=== PATIENT | female | born 1965 | race Caucasian/White ===

== ENCOUNTER → 2016-08-03 | Outpatient (CLI) | payer BC ==
--- NOTE | 2016-08-04 08:21 | MAMMOGRAPHY REPORT ---
BILATERAL DIGITAL SCREENING MAMMOGRAM TOMOSYNTHESIS WITH CAD: 08/03/2016 CLINICAL HISTORY: Routine screening. Patient has no complaints. TECHNIQUE: Breast tomosynthesis in addition to standard 2D mammography was performed. Current study was also evaluated with a Computer Aided Detection (CAD) system. COMPARISON: Comparison is made to exams dated: 07/25/2015 mammogram, 07/22/2014 mammogram, 05/30/2012 mamm ogram, 05/24/2011 mammogram, 05/19/2010 mammogram, and 06/04/2013 mammogram - [facility] BREAST COMPOSITION: The tissue of both breasts is heterogeneously dense, which may obscure small mas ses. FINDINGS: A linear scar marker overlies the upper outer quadrant of the right breast. There are a fe w benign-appearing calcifications in the breasts. No new suspicious mass, architectural distortion o r cluster of microcalcifications is seen. IMPRESSION: ACR BI-RADS CATEGORY 1: NEGATIVE There is no mammographic evidence of malignancy. A 1 year screening mammogram is recommended. The pa tient will receive written notification of the results. Approximately 10% of breast cancers are not detected with mammography. A negative mammographic report should not delay biopsy if a clinically suggestive mass is present. Randi Pleitez M.D. ay/:08/03/2016 18:16:39 End Packer: Estrellita HENRIQUEZ(Will)(M), [facility] letter sent: Normal 1/2 BI-RADS Code: ACR BI-RADS Category 1: Negative
== END | disposition home or self-care (01) ==
LOC: C.MAMM 10:32
PROVIDERS: ATTEND Physician Assistant
DX: Z12.31 Encounter for screening mammogram for malignant neoplasm of breast (principal)

== ENCOUNTER 2017-07-13 11:42 | Emergency (ER) | payer BC, OTHER ==
[~2017-07-13] VITALS: Ht 172.7 cm; Wt 70.0 kg
[2017-07-13 11:44] VITALS: TEMP 36.4; Ht 172.7 cm; Wt 70.0 kg
[2017-07-13] MEDS ORDERED: AMOX500C3 PO (11:50)
[2017-07-13] MEDS ORDERED: AMPICILLIN/SULBACTAM SOD INJ 3,000 MG in SODIUM CHLORIDE 0.9% 100ML 100 ML IV STA (12:18)
[2017-07-13 12:38] LABS: BASO % 0.3 %; BASO ABS # 0.02 K/uL (0-0.2); EOS % 0.6 %; EOS ABS # 0.04 K/uL (0-0.5); HEMATOCRIT 39.5 % (37-47); HEMOGLOBIN 13.4 g/dL (12.0-16.0); IG# 0.01 K/uL (0.00-0.02); LYMPH % 17.2 %; LYMPH ABS # 1.24 K/uL (1.2-3.4); MEAN CELL VOLUME 97.3 fL (80-100); MEAN CORPUSCULAR HGB CONC 33.9 g/dl (32-36); MEAN PLATELET VOLUME 9.9 fL (7.4-10.4); MONO % 7.3 %; MONO ABS # 0.53 K/uL (0.11-0.59); NEUT % 74.5 %; NEUT ABS # 5.39 K/uL (1.4-6.5); PLATELET COUNT 208 K/uL (130-400); RED CELL DISTRIBUTION WIDTH SD 46.3 fL (36.4-46.3); WHITE BLOOD COUNT 7.23 K/uL (4.8-10.8)
[2017-07-13 13:03] LABS: CALCIUM 8.9 mg/dl (8.5-10.1); CREATININE 0.71 mg/dl (0.60-1.20); POTASSIUM 3.8 mmol/L (3.5-5.1); TOTAL PROTEIN 7.3 gm/dl (6.4-8.2)
[2017-07-13 13:45] VITALS: BP 119/87; PULSE 87; O2SAT 100
--- NOTE | 2017-07-13 13:47 | EMERGENCY ROOM VISIT NOTE ---
ED Visit Note First contact with patient: 11:50 CHIEF COMPLAINT: Infection of the left hand, dog bite HISTORY OF PRESENT ILLNESS: This left-hand dominant 52-year-old female patient presents to the emergency department, ambulatory, complaining of swelling, redness, and pain of the left hand. The patient states she was bitten by a dog yesterday. The dog was her own, and is up-to-date on its vaccinations. She states she was breaking up a fight over food bowls between 2 of her dogs, and is uncertain exactly which dog bit her. She was seen by her PCP. She was started on Augmentin, and has had 3 doses of medication since then. The area has become red, warm, and very painful. The patient denies fever, chills, nausea , or loss of appetite. Movement of the hand is mildly decreased because of the pain. The patient's tetanus shot is up to date. She states she feels that the redness is spreading and spoke with a physician today who suggested evaluation at the ED due to the worsening redness and swelling as well as some mild streaking towards the elbow. REVIEW OF SYSTEMS: A 10 system review of systems was performed with positives and pertinent negatives listed in the history of present illness. All other systems were reviewed and are negative. ALLERGIES: None MEDICATIONS: None PMH: None SOCIAL HISTORY: The patient lives locally with family. She denies drug, alcohol , tobacco use. PHYSICAL EXAM: Vital Signs: Reviewed Nurse's notes, Temperature 36.4C, vital signs stable. GENERAL: This is a 52-year-old white female, in no acute distress , is non toxic in appearance, well-developed, well-nourished. SKIN: There is a puncture wound in the webspace between the first and second digits on the left hand. The left hand is red, warm, very tender, and swollen. There is no lymphangitic streaking. There is no discharge. There is no fluctuance. There is no induration. HEART: Regular rate and rhythm without murmur, gallop, or rub. LUNGS: Clear to auscultation bilaterally without wheezes, rales, or rhonchi. NEURO: Alert and oriented to person, place, and time. Normal sensation to light and sharp touch. Capillary reflex less than 2 seconds. Peripheral pulses 2 + bilaterally. EMERGENCY DEPARTMENT COURSE: I examined the patient. Her symptoms are consistent with an acute cellulitis related to the dog bite. There is no obvious or palpable abscess noted. Labs performed and reviewed. There is no obvious leukocytosis. There is no anemia or thrombocytopenia. The patient's renal, hepatic function and electrolytes were without abnormalities. Patient was given a dose of IV Unasyn here in the emergency department. The redness and swelling was outlined with a skin marker. The patient was given an arm sling to help with elevation of the wound. I had a long discussion with the patient regarding the potential risks associated with bites and infection. The patient certainly does not appear to be experiencing any systemic infection at this time. I feel that the wound is healing as it should, and discussed with her that these often become worse before they get better. I recommended she continue taking the Augmentin as prescribed and has a recheck in 24 hours. Patient verbalized understanding. Discharge instructions reviewed, patient was discharged home in good condition. I attest that I have personally reviewed the patient's current medication list. Patient was found to have normal blood pressure on screening and does not require follow-up. Differential diagnosis includes cellulitis, abscess, DVT, superficial thrombus, septic joint, necrotizing fasciitis, burn, dermatitis, impetigo, erythema multiforme, bite, osteomyelitis, Cueto-Jacques Syndrome, gangrene, malignancy , rabies exposure, and others DIAGNOSIS: Cellulitis of the left hand, dog bite The chart was completed utilizing [employer] Speech voice recognition software. Grammatical errors, random word insertions, pronoun errors, and incomplete sentences are an occasional consequence of this system due to software limitations, ambient noise, and hardware issues. Any formal questions or concerns about the content, text, or information contained within the body of this dictation should be directly addressed to the provider for clarification. Current/Historical Medications Scheduled Amoxicillin (Amoxil), 500 MG PO BID Allergies Coded Allergies: No Known Allergies (Unverified , 08/30/12) Vital Signs Date Time Temp Pulse Resp B/P (MAP) Pulse Ox O2 Delivery O2 Flow Rate FiO2 07/13/17 11:44 36.4 93 16 118/74 92 Laboratory Results 07/13/17 12:30 Red Blood Count 4.06, Mean Corpuscular Volume 97.3, Mean Corpuscular Hemoglobin 33.0, Mean Corpuscular Hemoglobin Concent 33.9, Mean Platelet Volume 9.9, Neutrophils (%) (Auto) 74.5, Lymphocytes (%) (Auto) 17.2, Monocytes (%) (Auto) 7.3, Eosinophils (%) (Auto) 0.6, Basophils (%) (Auto) 0.3, Neutrophils # (Auto) 5.39, Lymphocytes # (Auto) 1.24, Monocytes # (Auto) 0.53, Eosinophils # (Auto) 0.04, Basophils # (Auto) 0.02 07/13/17 12:30 Test 07/13/17 12:30 White Blood Count 7.23 K/uL (4.8-10.8) Red Blood Count 4.06 M/uL (4.2-5.4) Hemoglobin 13.4 g/dL (12.0-16.0) Hematocrit 39.5 % (37-47) Mean Corpuscular Volume 97.3 fL (80-100) Mean Corpuscular Hemoglobin 33.0 pg (25-34) Mean Corpuscular Hemoglobin Concent 33.9 g/dl (32-36) Platelet Count 208 K/uL (130-400) Mean Platelet Volume 9.9 fL (7.4-10.4) Neutrophils (%) (Auto) 74.5 % Lymphocytes (%) (Auto) 17.2 % Monocytes (%) (Auto) 7.3 % Eosinophils (%) (Auto) 0.6 % Basophils (%) (Auto) 0.3 % Neutrophils # (Auto) 5.39 K/uL (1.4-6.5) Lymphocytes # (Auto) 1.24 K/uL (1.2-3.4) Monocytes # (Auto) 0.53 K/uL (0.11-0.59) Eosinophils # (Auto) 0.04 K/uL (0-0.5) Basophils # (Auto) 0.02 K/uL (0-0.2) RDW Standard Deviation 46.3 fL (36.4-46.3) RDW Coefficient of Variation 13.0 % (11.5-14.5) Immature Granulocyte % (Auto) 0.1 % Immature Granulocyte # (Auto) 0.01 K/uL (0.00-0.02) Anion Gap 4.0 mmol/L (3-11) Est Creatinine Clear Calc Drug Dose 95.6 ml/min Estimated GFR () 115.1 Estimated GFR (Non- 99.3 BUN/Creatinine Ratio 20.7 (10-20) Calcium Level 8.9 mg/dl (8.5-10.1) Total Bilirubin 0.7 mg/dl (0.2-1) Aspartate Amino Transf (AST/SGOT) 13 U/L (15-37) Alanine Aminotransferase (ALT/SGPT) 17 U/L (12-78) Alkaline Phosphatase 48 U/L (45-117) Total Protein 7.3 gm/dl (6.4-8.2) Albumin 4.0 gm/dl (3.4-5.0) Globulin 3.3 gm/dl (2.5-4.0) Albumin/Globulin Ratio 1.2 (0.9-2) Medications Administered Medications (Trade) Dose Ordered Sig/Heena Route Start Time Stop Time Status Last Admin Dose Admin Ampicillin Sodium/ Sulbactam Sodium 3000 mg/Sodium Chloride 108 ml @ 200 mls/hr ONE STAT IV 07/13/17 12:18 07/13/17 12:50 DC 07/13/17 12:46 200 MLS/HR Departure Information Impression Primary Impression: Dog bite Additional Impression: Cellulitis of hand, left Dispostion Home / Self-Care Condition GOOD Referrals Lucy López PA-C (PCP) Patient Instructions ED Bite Dog, ED Infec Skin Cellulitis, [facility] Additional Instructions You were seen in the emergency department today for cellulitis. You were given a dose of IV Unasyn while here in the ED. Your labs did not reveal any acute changes or cause for concern for systemic infection. As discussed, I recommend you continue to take Augmentin as prescribed. Use the arm sling to help with elevation of the hand. Apply ice to help with pain/swelling. Ibuprofen(Motrin, Advil) may be used for fever, inflammation or pain. Use 600mg every six hours as needed. Take with food. Avoid using more than 2400mg in a 24 hour period. Do not use 2400mg per day for more than three consecutive days without physician direction. Prolonged inappropriate use can lead to stomach upset or ulcers. (AND/OR) Acetaminophen(Tylenol) may be used for fever or pain. Use 1000mg every six hours as needed. Avoid using more than 3000mg in a 24 hour period. You should follow-up here or your PCP for a recheck in 24 hours. Return immediately to the ED for worsening pain, swelling, redness, pus-like drainage, fever, chills, nausea, vomiting, body aches, or other concerning spreading or systemic symptoms. Problem Qualifiers Primary Impression: Dog bite Encounter type: subsequent encounter Qualified Codes: W54.0XXD - Bitten by dog, subsequent encounter
== END 2017-07-13 14:12 | disposition home or self-care (01) ==
LOC: C.EDB 11:43 → C.EDD 14:12
DX: L03.114 Cellulitis of left upper limb (principal); S61.452A Open bite of left hand, initial encounter; W54.0XXA Bitten by dog, initial encounter; Y93.K9 Activity, other involving animal care